=== PATIENT | male | born 1990 | race African-American/Black ===

== ENCOUNTER 2020-11-13 01:19 | Emergency (ER) | payer SELFPAY ==
[~2020-11-13] VITALS: Ht 193 cm; Wt 130.0 kg
[2020-11-13 02:50] VITALS: BP 135/76
== END 2020-11-13 03:05 | disposition home or self-care (01) ==
LOC: ER 01:19
DX: F20.9 Schizophrenia, unspecified (principal); Z76.0 Encounter for issue of repeat prescription; F15.10 Other stimulant abuse, uncomplicated
CPT/HCPCS: 93005; 99283